=== PATIENT | female | born 1985 | race Caucasian/White ===

== ENCOUNTER 2016-06-30 22:19 | Emergency (ER) | payer OTHER ==
[~2016-06-30] VITALS: Ht 154.9 cm; Wt 74.4 kg
[~2016-06-30 22:19] MED LIST: /ADVA50050 INH; /MOXI40TA; /MOXI40TA OR; ACET65TA; ACET65TA OR; ALBUTEROL INHL INH; ALBUTEROL NEBS INH; ARNU1INH3 IN; COLA100C PO; FERR325T OR; IBUP80TA PO; NASAL SPRAY; PERCOCET PO; PRED10TA2 OR; PRED20TA; PRED20TA OR; PRED50TA OR; STUACAP PO; VITA500T OR; XOPEAER; ZITH250T; cepacol PO
[2016-06-30] MEDS ORDERED: FLON1SPR (22:38)
[2016-07-01] MEDS ORDERED: IBUPROFEN 600 MG TAB PO ONE (00:15)
[2016-07-01] MEDS ORDERED: ALBUTEROL 90 MCG/ACT 8GM HFA INHALER INH ONE (00:15)
[2016-07-01] MEDS ORDERED: PRED20TA PO (01:07)
[2016-07-01 01:15] VITALS: BP 113/71
== END 2016-07-01 01:17 | disposition home or self-care (01) ==
LOC: M ED 23:30
DX: J06.9 Acute upper respiratory infection, unspecified (principal); J45.909 Unspecified asthma, uncomplicated; Z79.899 Other long term (current) drug therapy

== ENCOUNTER → 2016-09-07 | Outpatient (REF) | payer OTHER ==
[~2016-09-07] MED LIST changes: -COLA100C PO; +COLA100C3 PO; +FLON1SPR; +PRED20TA PO
[2016-09-07 15:20] LABS: MEAN CORPUSCULAR HEMOGLOBIN 31.1 pg (27.0-33.0); MEAN CORPUSCULAR VOLUME 94.3 fl (80.0-96.0); RED CELL DISTRIBUTION WIDTH 12.5 % (11.5-14.5); WHITE BLOOD COUNT 6.9 K/mm3 (4.0-10.0)
[2016-09-07 15:46] LABS: FOLLICLE STIMULATING HORMONE 5.9 mIU/mL; LUTEINIZING HORMONE 21.5 mIU/mL
[2016-09-12 00:10] LABS: F8 ACTIVITY FOR F8 PANEL 97 % (57-163); F8 ACTIVITY vWB FOR F8 PANEL 92 % (50-200); F8 ANTIGEN FOR F8 PANEL 90 % (50-200); INTERPRETATION: Note (.)
== END ==
LOC: M LAB REF 14:59
PROVIDERS: ATTEND Obstetrics & Gynecology
DX: N92.1 Excessive and frequent menstruation with irregular cycle (principal)

== ENCOUNTER → 2017-01-11 | Outpatient (REF) | payer OTHER ==
[~2017-01-11] MED LIST changes: -COLA100C3 PO; +COLA100C5 PO
== END ==
LOC: M LAB REF 11:36
PROVIDERS: ATTEND Physician Assistant
DX: R50.9 Fever, unspecified (principal); M79.1 Myalgia

== ENCOUNTER → 2017-05-20 | Outpatient (REF) | payer OTHER ==
[2017-05-20 23:31] LABS: INFLUENZA A AMPLIFICATION POSITIVE (NEGATIVE); INFLUENZA B AMPLIFICATION NEGATIVE (NEGATIVE); RSV AMPLIFICATION NEGATIVE (NEGATIVE)
== END ==
LOC: M LAB REF 09:46
DX: J11.1 Influenza due to unidentified influenza virus with other respiratory manifestations (principal)
CPT/HCPCS: 87631

== ENCOUNTER → 2020-08-25 | Outpatient (REF) | payer OTHER ==
[~2020-08-25] MED LIST changes: -/ADVA50050 INH; -/MOXI40TA; -/MOXI40TA OR; +ADVA1AER2 INH; +AVEL1TAB2; +AVEL1TAB2 OR; +OXYC1TAB23 PO; -PERCOCET PO
== END ==
LOC: M LAB REF 17:17
PROVIDERS: ATTEND Surgery
DX: L72.11 Pilar cyst (principal)

== ENCOUNTER → 2024-10-27 | Outpatient (REF) | payer OTHER ==
[2024-10-27 21:56] LABS: APPEARANCE, URINE CLEAR (CLEAR); BACTERIA, URINE AUTO NEGATIVE (NEGATIVE); BILIRUBIN, URINE AUTO NEGATIVE (NEGATIVE); BLOOD, URINE BLOOD NEGATIVE (NEGATIVE); GLUCOSE, URINE (UA) AUTO NEGATIVE (NEGATIVE); KETONE, URINE AUTO NEGATIVE (NEGATIVE); LEUKOCYTE ESTERASE, URINE AUTO NEGATIVE (NEGATIVE); NITRITE, URINE AUTO NEGATIVE (NEGATIVE); PROTEIN, URINE AUTO NEGATIVE (NEGATIVE); RBC, URINE AUTO 0 /HPF (0-3); SPECIFIC GRAVITY URINE AUTO 1.015 (1.002-1.035); SQUAMOUS EPITHELIAL CELL UR AU 0 /HPF (0-6); UROBILINOGEN, URINE AUTO 0.2 mg/dL (0.0-2.0); WBC, URINE AUTO 1 /HPF (0-3)
== END ==
LOC: M LAB REF 21:22
PROVIDERS: ATTEND Physician Assistant Medical
DX: N39.0 Urinary tract infection, site not specified (principal)